=== PATIENT | female | born 1995 | race Caucasian/White ===

== ENCOUNTER 2017-02-16 16:31 | Emergency (ER) | payer OTHER ==
[~2017-02-16] VITALS: Ht 170.2 cm; Wt 100.0 kg
[2017-02-16] MEDS ORDERED: METHOCARBAMOL 500 MG TABLET PO ONE (18:45)
[2017-02-16] MEDS ORDERED: KETOROLAC TROMETHAMINE 60 MG/2 ML VIAL IM ONE (18:45)
[2017-02-16 19:21] VITALS: BP 128/67
== END 2017-02-16 19:25 | disposition home or self-care (01) ==
LOC: EMS 16:36
DX: S39.012A Strain of muscle, fascia and tendon of lower back, initial encounter (principal); X58.XXXA Exposure to other specified factors, initial encounter; Y93.89 Activity, other specified; Y92.89 Other specified places as the place of occurrence of the external cause; Y99.8 Other external cause status
CPT/HCPCS: 96372; 99283; J1885